=== PATIENT | female | born 1965 | race Caucasian/White ===

== ENCOUNTER → 2017-01-07 | Outpatient (CLI) | payer BC ==
[~2017-01-07] MED LIST: BNZ10T PO; HYDR-757 PO; HYDR1TAB8 OP; IBUP-15 PO; LEVO100T7 PO; LVT.112T PO; OSLT75C PO; PRD20T PO; SULF1TAB38 PO
--- OUTSIDE RECORDS SUMMARY | 2017-01-07 09:27 | XMS REPORT | Continuity of Care Document ---
Author Author [facility] Organization [facility] Address Unknown Phone Unavailable Care Team Providers Care Hassock Maker Name Role Phone Self, Referral PCP Unavailable Source Comments Some departments are not documenting in the electronic medical record. If you do not see the information that you expected, contact Release of Information in the Health Information Management department at [phone] for further assistance in locating additional records.[facility] Active Allergies and Adverse Reactions Not on File Current Medications Not on file Active Problems Not on file Social History Tobacco Use Types Packs/Day Years Used Date Never Assessed Plan of Care Health Maintenance Due Date Last Done Comments Physical (Comprehensive) 1973 Exam Pertussis Vaccine 1977 Tetanus Vaccine 1983 Cervical Cancer Screening 1987 Breast Cancer Screening 2006 Colorectal Cancer 2016 Screening Influenza Vaccine 06/28/2016 Results from Last 3 Months Not on file
--- NOTE | 2017-01-07 18:25 | Diagnostic Imaging Report ---
Bilateral screening mammogram. The current study was also evaluated with a Computer Aided Detection (CAD) system. INDICATION: Screening. No current complaints stated on the questionnaire. COMPARISON: 06/24/15. FINDINGS: The breasts are composed of heterogeneously dense parenchyma which may decrease mammographic sensitivity. There is no mass, architectural distortion or suspicious cluster of calcifications seen. IMPRESSION: Heterogeneously dense parenchyma which would decrease mammographic sensitivity, without definite change. Annual screening mammogram is recommended. ACR BI-RADS Category 2: Benign findings. Result letter will be mailed to the patient. Note: At least 10% of breast cancer is not imaged by mammography. Dictated by: Dictated on workstation # [id number]
== END ==
LOC: RAD 09:24
PROVIDERS: ATTEND Obstetrics & Gynecology
DX: Z12.31 Encounter for screening mammogram for malignant neoplasm of breast (principal)
CPT/HCPCS: 77067

== ENCOUNTER 2017-12-04 07:59 | Outpatient (RCR) | payer BC ==
[~2017-12-04 07:59] MED LIST changes: -IBUP-15 PO; +IBUP-16 PO
== END 2017-12-04 13:15 | disposition home or self-care (01) ==
PROVIDERS: ATTEND Nurse Practitioner
DX: M16.12 Unilateral primary osteoarthritis, left hip (principal)

== ENCOUNTER → 2018-03-10 | Outpatient (CLI) | payer BC ==
[~2018-03-10] MED LIST changes: +BENA20TA2 PO
--- NOTE | 2018-03-10 09:42 | Diagnostic Imaging Report ---
INDICATION: Routine screening. COMPARISON: 01/07/2017 and 06/24/2015. TECHNIQUE: 2D and 3D bilateral screening mammography was performed with CAD. FINDINGS: Both breasts are heterogeneously dense, limiting the sensitivity of mammography. Circumscribed nodular densities in the outer right breast appear stable and most likely represent intramammary lymph nodes. A tiny intramammary lymph node in the outer left breast is also noted. No spiculated mass or malignant appearing microcalcifications are seen. The axillae are unremarkable. IMPRESSION: No mammographic features suspicious for malignancy are identified. ACR BI-RADS Category 2: Benign findings. Result letter will be mailed to the patient. Note: At least 10% of breast cancer is not imaged by mammography. Dictated by: Dictated on workstation # [id number]
== END ==
LOC: RAD 07:50
PROVIDERS: ATTEND Obstetrics & Gynecology
DX: Z12.31 Encounter for screening mammogram for malignant neoplasm of breast (principal)
CPT/HCPCS: 77067

== ENCOUNTER 2018-03-26 05:38 | Outpatient (CLI) | payer BC ==
[~2018-03-26] VITALS: Ht 167.6 cm; Wt 111.1 kg
[~2018-03-26 05:38] MED LIST changes: -BENA20TA2 PO
[2018-03-26] MEDS ORDERED: BENA20TA2 PO (14:48)
== END 2018-03-26 14:50 ==
LOC: PREOP 05:38
PROVIDERS: ATTEND Surgery
DX: Z01.818 Encounter for other preprocedural examination (principal); Z12.11 Encounter for screening for malignant neoplasm of colon

== ENCOUNTER 2018-04-02 09:48 | Day surgery (SDC) | payer BC ==
[~2018-04-02] VITALS: Ht 167.6 cm; Wt 111.1 kg
[~2018-04-02 09:48] MED LIST changes: +BENA20TA2 PO
--- OUTSIDE RECORDS SUMMARY | 2018-04-02 09:51 | XMS REPORT | Clinical Summary ---
Author Author [facility] Organization [facility] Address Unknown Phone Unavailable Care Team Providers Care Stained Glass Window Designer Name Role Phone Self, Referral PCP Unavailable Source Comments Some departments are not documenting in the electronic medical record. If you do not see the information that you expected, contact Release of Information in the Health Information Management department at [phone] for further assistance in locating additional records.[facility] Allergies Not on File Current Medications Not on file Active Problems Not on file Social History Tobacco Use Types Packs/Day Years Used Date Never Assessed Sex Assigned at Date Recorded Not on file Last Filed Vital Signs Not on file Plan of Treatment Health Maintenance Due Date Last Done Comments PHYSICAL (COMPREHENSIVE) 1973 EXAM PERTUSSIS VACCINE 1977 HIV SCREENING 1981 TETANUS VACCINE 1983 CERVICAL CANCER SCREENING 1996 BREAST CANCER SCREENING 2006 COLORECTAL CANCER 2016 SCREENING INFLUENZA VACCINE 07/28/2018 Results Not on filefrom Last 3 Months
[2018-04-02 09:55] VITALS: BP 132/92
[2018-04-02] MEDS ORDERED: NS IV 500 ML 500 ML ONE (09:59)
[2018-04-02] MEDS ORDERED: NS IV 500 ML 500 ML IV PRN (10:02)
[2018-04-02] MEDS ORDERED: LIDOCAINE JELLY 2% (XYLOCAINE) 5 ML TUBE MM PRN (10:15)
[2018-04-02] MEDS ORDERED: LIDOCAINE JELLY 2% (XYLOCAINE) 5 ML TUBE ONE (10:38)
[2018-04-02] MEDS ORDERED: fentaNYL INJECTION 100 MCG/2 ML AMP ONE ×2 (10:38→10:39)
[2018-04-02] MEDS ORDERED: MIDAZOLAM 2 MG/2 ML (VERSED) VIAL ONE ×5 (10:39→11:58)
--- NOTE | 2018-04-02 10:54 | Progress Note-Pre Operative ---
Pre-Operative Progress Note H&P Reviewed The H&P was reviewed, patient examined and no changes noted. Date Seen by Provider: Apr 02, 2018 Time Seen by Provider: 10:00 Date H&P Reviewed: Apr 02, 2018 Time H&P Reviewed: 10:00 Pre-Operative Diagnosis: screening colonoscopy PHYLLIS GOLD MD Apr 02, 2018 10:54 am
--- NOTE | 2018-04-02 10:54 | Conscious Sedation/ASA ---
Conscious Sedation Pre-Proced Time Reviewed: 10:00 ASA Class: 2 Airway Mallampati Classification: ([place] appropriate class) I. II. III, IV Lungs Heart ASA score ASA 1: a normal healthy patient ASA 2: a patient with a mild systemic disease (mid diabetes, controlled hypertension, obesity ASA 3: a patient with a severe systemic disease that limits activity (angina , COPD, prior Myocardial infarction) ASA 4: a patient with an incapacitating disease that is a constant threat to life (CHF, renal failure) ASA 5: a moribund patient not expected to survive 24 hrs. (ruptured aneurysm) ASA 6: a declared brain patient whose organs are being harvested. For emergent operations, add the letter E after the classification Grade 2 Sedation Plan: Analgesia, Amnesia, Plan communicated to team members, Discussed options with patient/fam, Discussed risks with patient/fam Note The patient is an appropriate candidate to undergo the planned procedure, sedation, and anesthesia. The patient immediately re-assessed prior to indication. PHYLLIS GOLD MD Apr 02, 2018 10:54 am
[2018-04-02] MEDS ORDERED: ONDANSETRON 4 MG/2 ML (SDV) Z0FRAN IV PRN (11:00)
[2018-04-02] MEDS ORDERED: morphine INJ 10 MG/ML 1ML (SYR OR VIAL) IV PRN (11:00)
[2018-04-02] MEDS ORDERED: ACETAMINOPHEN 325 MG TABLET/CAPLET (TYLENOL) PO PRN (11:00)
[2018-04-02] MEDS ORDERED: HYDROcodone/APAP 5 MG/325 MG (LORTAB) TAB PO PRN (11:00)
[2018-04-02] MEDS: fentaNYL INJECTION 100 MCG/2 ML AMP IVP PRN ×4 (11:51→12:02)
[2018-04-02] MEDS: MIDAZOLAM 2 MG/2 ML (VERSED) VIAL IVP PRN ×4 (11:52→12:00)
--- NOTE | 2018-04-02 12:12 | Progress Note-Post Operative ---
Post-Operative Progess Note Surgeon (s)/School Community Relations Coordinator (s) Surgeon PHYLLIS GOLD MD School Community Relations Coordinator: none Pre-Operative Diagnosis screening colonoscopy Post-Operative Diagnosis chronic stage 2 ext and int hemorrhoids. Procedure & Operative Findings Date of Procedure 04/02/18 Procedure Performed/Findings Colonoscopy. Anesthesia Type CS Estimated Blood Loss Estimated blood loss (mL): minimal Specimens/Packing Specimens Removed none PHYLLIS GOLD MD Apr 02, 2018 12:12 pm
--- NOTE | 2018-04-02 12:13 | Discharge Inst-Surgical ---
D/C Lap Instructions-ASIF Follow Up 10 yrs Activity as tolerated High Fiber Diet 25g or more per day Avoid Alcohol, Caffeine, Spicy Donovan and Acid foods. Drink 64 fluid oz or more of fluids per day. Symptoms to Report: Fever over 101 degree F, Nausea/Vomiting If any problems/questions: Contact your physician or go to Emergency Room PHYLLIS GOLD MD Apr 02, 2018 12:13 pm
[2018-04-02 12:45] VITALS: BP 118/77
[2018-04-02 13:05] VITALS: BP 119/74
[2018-04-02 13:10] VITALS: BP 119/74
--- NOTE | 2018-04-02 18:32 | OPERATIVE REPORT ---
DATE OF SERVICE: 04/02/2018 ATTENDING PRIMARY CARE PHYSICIAN: Dr. Madrigal. PREOPERATIVE DIAGNOSIS: Screening colonoscopy. POSTOPERATIVE DIAGNOSIS: Mild chronic stage II external and internal hemorrhoids. Remainder of the rectum and colon were normal. PROCEDURE: Colonoscopy. SURGEON: Dr. Gold. ANESTHESIA: Conscious sedation. ESTIMATED BLOOD LOSS: Minimal. FINDINGS: Chronic stage II external and internal hemorrhoids, not actively edematous nor inflamed and no bleeding. The remainder of the rectum and colon were normal. There were no polyps or any neoplasms identified. DISPOSITION: The patient tolerated the procedure well. The patient is a 52-year-old female in need of a screening colonoscopy. She has not had a colonoscopy up to this point in her life. She reports that she is doing well and does not report any major issues with diarrhea, no constipation as well as no red blood per rectum nor any dark tarry stools. She does report that she has had some mild intermittent episodes of dull lower quadrant abdominal pain and was treated for diverticulitis. She has not had a colonoscopy at this point in her life. She also does not report any family history of colon cancer. The patient was brought to the endoscopy suite, laid in the left lateral decubitus position. After adequate IV pain and sedating medications and conscious sedation anesthesia, a digital rectal examination was performed. Chronic stage II external and internal hemorrhoids were identified, which are not actively edematous nor inflamed and no bleeding. Normal sphincter tone was felt and there were no palpable masses. The endoscope was then intubated to the anus and rectum gently insufflated. The endoscope was then advanced to the valves of Resendiz of the rectum with no polyps or any neoplasms identified. We then proceeded through the sigmoid colon where no diverticulosis identified. The endoscope was then advanced to the remainder of the descending, transverse and ascending colon to the cecum. These segments were normal. There were no mucosal inflammatory changes as well as no polyps or any neoplasms identified. The endoscope was then slowly withdrawn while taking a second look and suctioning of residual air with no additional findings. The patient tolerated the procedure well. We will recommend conservative management with a high fiber diet with at least 25 grams of fiber per day to promote soft stools on a daily basis. She does not need another colonoscopy for another 10 years; however, sooner if she becomes symptomatic. Job ID: [id number] DocumentID: [id number] Dictated Date: 04/02/2018 12:12:17 Business Mgr Date: 04/02/2018 18:31:49 Dictated By: PHYLLIS GOLD MD
== END 2018-04-02 13:10 | disposition home or self-care (01) ==
LOC: ENDO 09:48
PROVIDERS: ATTEND Surgery
DX: Z12.11 Encounter for screening for malignant neoplasm of colon (principal); K64.1 Second degree hemorrhoids; I10 Essential (primary) hypertension; E03.9 Hypothyroidism, unspecified; Z88.2 Allergy status to sulfonamides; Z79.899 Other long term (current) drug therapy
CPT/HCPCS: 84703

== ENCOUNTER → 2019-07-02 | Outpatient (CLI) | payer BC ==
[~2019-07-02] MED LIST changes: -BENA20TA2 PO; +BENA20TA7 PO; +CATHETER FLUSH 10 ML SYR IV PRN; +HYDR-4226 PO; -HYDR-757 PO
--- NOTE | 2019-07-02 11:42 | Diagnostic Imaging Report ---
CLINICAL INDICATION: Patient with right upper quadrant pain. EXAM: Right upper quadrant ultrasound. COMPARISON: CT scan of the abdomen and pelvis performed without contrast dated 02/19/2018. FINDINGS: Portions of the pancreatic tail are obscured. Otherwise, the pancreas has normal echogenicity and configuration with no gross mass seen. There is diffuse hyperechogenicity seen throughout the liver. The liver surface is smooth. The liver measures 18 cm in craniocaudal dimension. There is no intrahepatic or extrahepatic ductal dilation. The common bile duct measures 4.9 mm. The main portal vein demonstrates hepatopetal flow. The gallbladder is unremarkable with no stones or sludge. There is no pericholecystic fluid or gallbladder wall thickening. There is no sonographic Del Valle's sign. The right kidney has normal echogenicity, size, and appearance with no hydronephrosis or mass. The right kidney measures 10.2 cm in craniocaudal dimension. There is no abdominal ascites. IMPRESSION: 1: There is no evidence of acute abdominal process. There are no gallstones or evidence of cholecystitis. 2: Mild hepatomegaly with diffuse hyperechogenicity seen throughout the liver which may related to diffuse fatty infiltration of the liver. 3: The remainder of this exam shows no other significant abnormality. Dictated by: Dictated on workstation # [id number]
--- NOTE | 2019-07-02 12:23 | Diagnostic Imaging Report ---
INDICATION: Right upper quadrant pain. TECHNIQUE: Patient was administered 5.2 mCi technetium 99m Choletec intravenously and imaging over the abdomen was performed. After 60 minutes patient ingested one can of Ensure and a gallbladder ejection fraction was calculated. FINDINGS: There is homogeneous uptake of activity throughout the liver. There is prompt excretion of activity into the common duct and gallbladder. Normal passage of activity into the small bowel is identified. Gallbladder ejection fraction is normal at 74%. IMPRESSION: Normal HIDA scan and gallbladder ejection fraction. Dictated by: Dictated on workstation # [id number]
== END ==
LOC: RAD 06:29
PROVIDERS: ATTEND Surgery
DX: R10.11 Right upper quadrant pain (principal); R16.0 Hepatomegaly, not elsewhere classified; R11.2 Nausea with vomiting, unspecified
CPT/HCPCS: 76705; 78227

== ENCOUNTER → 2019-08-04 | Outpatient (CLI) | payer BC ==
[~2019-08-04] MED LIST changes: -CATHETER FLUSH 10 ML SYR IV PRN
--- NOTE | 2019-08-04 12:46 | Diagnostic Imaging Report ---
INDICATION: Routine screening. COMPARISON: Comparison is made with prior mammogram from 03/10/2018 and 01/07/2017. 2-D and 3-D bilateral screening mammography was performed. The current study was also evaluated with a Computer Aided Detection (CAD) system. 3-D tomosynthesis was also performed and reviewed. FINDINGS: Both breasts remain heterogeneously dense, limiting the sensitivity of mammography. Circumscribed nodules in the outer portions of both breasts remain stable. Ovoid nodular density in the posterior central right breast at the nipple line on the CC view is noted. No definite correlate is identified on the MLO view. Additional views are recommended. No suspicious microcalcifications are seen. Axillae are unremarkable. IMPRESSION: Right breast density. Additional views are recommended. ACR BI-RADS Category 0: Incomplete. (Needs additional imaging evaluation). Result letter will be mailed to the patient. Note: At least 10% of breast cancer is not imaged by mammography. Dictated by: Dictated on workstation # [id number]
== END ==
LOC: RAD 07:22
PROVIDERS: ATTEND Obstetrics & Gynecology
DX: Z12.31 Encounter for screening mammogram for malignant neoplasm of breast (principal)
CPT/HCPCS: 77067

== ENCOUNTER → 2019-08-06 | Outpatient (CLI) | payer BC ==
--- NOTE | 2019-08-06 14:49 | Diagnostic Imaging Report ---
INDICATION: Right breast density. The patient presents for additional views. COMPARISON: 08/04/2019. TECHNIQUE: 2D and 3D unilateral right diagnostic mammography was performed including spot compression CC and conventional 90 degree lateral views. The current study was evaluated with a Computer Aided Detection (CAD) system. FINDINGS: Minimal residual nodularity on the spot compression CC view is noted. This appears to be inferiorly located on the tomographic images. No correlate on the ML view is seen. Even so, further evaluation with ultrasound is recommended. No suspicious calcifications are seen. IMPRESSION: Mild residual density in the inferior right breast at approximately the 6 o'clock location 7 cm from the nipple. Further evaluation of this area with ultrasound is recommended and will be performed today. ACR BI-RADS Category 0: Incomplete. (Needs additional imaging evaluation). Result letter will be mailed to the patient. Note: At least 10% of breast cancer is not imaged by mammography. Dictated by: Dictated on workstation # [id number]
--- NOTE | 2019-08-06 14:54 | Diagnostic Imaging Report ---
INDICATION: Right breast density. Patient presents for further evaluation. COMPARISON: Correlation is made with the diagnostic mammogram from earlier this same day and the screening study from 08/04/2019. FINDINGS: Sonographic interrogation of the inferior right breast was performed. No sonographic abnormality is seen. No solid or cystic mass is identified. There is a lymph node at the 9:30 location of the right breast 7 cm from the nipple measuring 11 mm x 5 mm x 7 mm. IMPRESSION: No suspicious sonographic abnormality is identified to account for the small density in the far posterior right breast inferiorly. This may represent fibroglandular tissue. Even so, a followup right mammogram in 6 months is recommended to show continued stability. ACR BI-RADS Category 3: Probably benign findings. Dictated by: Dictated on workstation # [id number]
== END ==
LOC: RAD 13:30
PROVIDERS: ATTEND Obstetrics & Gynecology
DX: R92.2 Inconclusive mammogram (principal)

== ENCOUNTER → 2020-02-17 | Outpatient (CLI) | payer BC ==
--- NOTE | 2020-02-17 15:52 | Diagnostic Imaging Report ---
INDICATION: Six-month follow-up right breast density. Correlation is made with prior mammogram from 08/04/2019. Unilateral right 2-D and 3-D diagnostic mammography was performed with CAD. Right breast remains heterogeneously dense, limiting the sensitivity of mammography. Previously noted ovoid density in the far posterior right breast at the nipple on the CC view is no longer appreciated. There are circumscribed densities in the upper outer right breast that have been previously seen consistent with intraparenchymal lymph nodes. No spiculated mass or malignant appearing microcalcifications are seen. Right axilla is unremarkable. IMPRESSION: BI-RADS Category 2 No mammographic features suspicious for malignancy are identified. Patient should return in July 2020 for bilateral screening mammography. ACR BI-RADS Category 2: Benign findings. Result letter will be mailed to the patient. Note: At least 10% of breast cancer is not imaged by mammography. Dictated by: Dictated on workstation # [id number]
== END ==
LOC: RAD 09:05
PROVIDERS: ATTEND Obstetrics & Gynecology
DX: N63.11 Unspecified lump in the right breast, upper outer quadrant (principal)

== ENCOUNTER → 2020-08-16 | Outpatient (CLI) | payer BC ==
--- NOTE | 2020-08-16 17:24 | Diagnostic Imaging Report ---
PROCEDURE: US Non-ob pelvis comp/trans. TECHNIQUE: Multiple realtime grayscale images were obtained of the pelvis in various projections endovaginally. Transabdominal imaging was also performed. INDICATION: Abnormal CT scan CT abdomen and pelvis exam performed in the [place], [place] on suggests that the uterus had a bulbous appearance along its posterior aspect. The CT abdomen/pelvis exam performed at this institution of 02/19/2018 failed to show any abnormality of the pelvis. On this exam, the uterus is not enlarged measuring 5.9 x 3.1 x 3.3 cm. There is no focal mass involving the uterus to suggest a fibroid or a neoplastic process. The endometrial lining is thickened measuring 13 mm (normal 5 mm or less). This finding is nonspecific, however. Correlation with the patient's menstrual cycle would be recommended. If the patient is postmenopausal, then either hysteroscopy or an endometrial biopsy should be considered. Both ovaries were identified and were generally unremarkable. There is no solid pelvic mass or free fluid collection noted. Incidental note is made of a small nabothian cyst. IMPRESSION: 1. There is no evidence for a mass involving the uterus. However, the endometrial lining does seem thickened if the patient is postmenopausal. Recommendations as above. 2. There is no pelvic mass or free fluid collection identified otherwise. Dictated by: Dictated on workstation # [id number]
== END ==
LOC: RAD 10:00
PROVIDERS: ATTEND Obstetrics & Gynecology
DX: R93.5 Abnormal findings on diagnostic imaging of other abdominal regions, including retroperitoneum (principal)
CPT/HCPCS: 76830; 76856

== ENCOUNTER → 2020-09-19 | Outpatient (CLI) | payer BC ==
--- NOTE | 2020-09-19 10:41 | Diagnostic Imaging Report ---
INDICATION: Screening. TECHNIQUE: The current study was also evaluated with a Computer Aided Detection (CAD) system. 3-D Tomographic imaging was also performed. COMPARISON: 08/04/2019, 03/10/2018, and 01/07/2017. FINDINGS: There are scattered fibroglandular densities bilaterally. There is an unchanged nodular density in the upper-outer left breast. There is no new dominant mass, spiculated lesion, or suspicious calcification identified. The skin, nipples, and axillae are unremarkable. IMPRESSION: Benign findings as above. ACR BI-RADS Category 2: Benign findings. Result letter will be mailed to the patient. Note: At least 10% of breast cancer is not imaged by mammography. Dictated by: Dictated on workstation # [id number]
== END ==
LOC: RAD 08:15
PROVIDERS: ATTEND Obstetrics & Gynecology
DX: Z12.31 Encounter for screening mammogram for malignant neoplasm of breast (principal)
CPT/HCPCS: 77063; 77067

== ENCOUNTER → 2021-09-25 | Outpatient (CLI) | payer BC ==
[~2021-09-25] MED LIST changes: +BENA-3 PO; -BENA20TA7 PO
--- NOTE | 2021-09-25 18:49 | Diagnostic Imaging Report ---
Digital mammogram, bilateral screening. This study was compared to the prior exam of 09/19/2020, 02/17/2020, 08/04/2019 and 03/10/2018. At this time, there are no current complaints. The current study was also evaluated with a Computer Aided Detection (CAD) system. FINDINGS: The fibroglandular tissue in both breasts is heterogeneously dense. This does limit the sensitivity of this exam. Overall, there does not appear to have been any significant change when compared to the prior study. No primary or secondary sign of malignancy is noted. IMPRESSION: There is no radiographic evidence for malignancy. ACR category 1 ACR BI-RADS Category 1: Negative. Result letter will be mailed to the patient. Note: At least 10% of breast cancer is not imaged by mammography. Dictated by: Dictated on workstation # [id number]
== END ==
LOC: RAD 08:00
PROVIDERS: ATTEND Obstetrics & Gynecology
DX: Z12.31 Encounter for screening mammogram for malignant neoplasm of breast (principal)
CPT/HCPCS: 77063; 77067